=== PATIENT | male | born 1970 | race African-American/Black ===

== ENCOUNTER 2023-02-24 19:07 | Emergency (ER) | payer OTHER ==
[2023-02-24 19:30] LABS: Glucose,Whole Blood 91 mg/dL (70-110)
[2023-02-24] MEDS ORDERED: MAGNESIUM SULFATE-D5W PMX 1 GM in DEXTROSE/WATER 1 100ML.BAG IVPB ONE (19:30)
[2023-02-24] MEDS ORDERED: methylPREDNISolone SOD SUCCI 40 MG/ML 1 ML VIAL IV STA (19:30)
[2023-02-24] MEDS ORDERED: IPRATROPIUM-ALBUTEROL 3 ML NEB INHALATION STA ×2 (19:30→21:21)
[2023-02-24 19:44] VITALS: RESP 20
[2023-02-24 19:44] LABS: Basophils # (A) 0.1 k/uL (0-0.2); Basophils % (A) 1 %; Eosinophils # (A) 0.4 k/uL (0-0.7); Eosinophils % (A) 3 %; HCT 44.4 % (39.0-53.0); HGB 14.6 gm/dL (13.0-17.5); Lymphocytes # (A) 1.6 k/uL (1.0-4.8); Lymphocytes % (A) 13 %; MCHC 32.9 g/dL (31.0-37.0); MCV 90.9 fL (80.0-100.0); Mean Platelet Volume 8.2; Monocytes # (A) 0.4 k/uL (0-1.0); Monocytes % (A) 4 %; Neutrophils # (A) 9.7 k/uL (1.3-7.7); Neutrophils % (A) 78 %; Platelet Count 369 k/uL (150-450); RBC 4.89 m/uL (4.30-5.90); WBC 12.3 k/uL (3.8-10.6)
[2023-02-24 19:55] LABS: African American GFR (CKD) >90 (>60 ml/min/1.73 sqM); Anion Gap 9 mmol/L; Blood Urea Nitrogen 20 mg/dL (9-20); Calcium 9.5 mg/dL (8.4-10.2); Carbon Dioxide 30 mmol/L (22-30); Chloride 102 mmol/L (98-107); Non-African American GFR(CKD) >90 (>60 ml/min/1.73 sqM); Potassium 3.9 mmol/L (3.5-5.1); Sodium 141 mmol/L (137-145)
[2023-02-24 20:08] LABS: Glucose 45 mg/dL (74-99)
[2023-02-24 20:13] LABS: Glucose,Whole Blood 109 mg/dL (70-110)
[2023-02-24 21:02] LABS: Glucose,Whole Blood 144 mg/dL (70-110)
--- NOTE | 2023-02-24 21:24 | XR ---
EXAMINATION TYPE: XR chest 2V DATE OF EXAM: 02/24/2023 7:47 PM CLINICAL INDICATION:Male, 52 years old with history of cough; [facility] COMPARISON: None TECHNIQUE: XR chest 2V Frontal and lateral views of the chest. FINDINGS: Exam is limited by patient body habitus. Lines/Tubes: No indwelling lines are seen. Lungs/Pleura: There is no evidence of pleural effusion, focal consolidation, or pneumothorax. Pulmonary vascularity: Mild pulmonary vascular congestion. Heart/mediastinum: Cardiac silhouette is mildly to moderately enlarged suggesting cardiomegaly. Sligh tly prominent pericardial fat. Left chest single lead AICD/pacer with tip over the right ventricle. U nremarkable mediastinum. Musculoskeletal: No acute osseous pathology. Mild degenerative changes. Other findings: None IMPRESSION: Cardiomegaly with mild pulmonary vascular congestion. Correlate for mild CHF.
[2023-02-24 22:14] LABS: Glucose,Whole Blood 157 mg/dL (70-110)
[2023-02-24] MEDS ORDERED: AZITHROMYCIN 500 MG TAB PO STA (22:18)
--- NOTE | 2023-02-24 22:23 | ED ---
General Adult HPI - General Chief complaint: Recheck/Abnormal Lab/Rx Stated complaint: diabetic issues Time Seen by Provider: 02/24/23 19:11 Source: patient, EMS, RN notes reviewed, old records reviewed Mode of arrival: EMS Limitations: no limitations - History of Present Illness Initial comments: Patient is a 52-year-old male who presents emergency Department with primary complaint of COPD exacerbation, cough and concern for URI. Patient is a diabet ic and was also having issues with his blood sugars at his rehab facility. Sugars ranged from upper 60s to 90s. States he took his normal Lantus and ate small dinner. Has been on increased doses of Lantus for the last 2 weeks due to prior rehab facility placing him on 50 units twice a day rather than 45 units twice a day which is normal dose. States he ate a smaller dinner than normal which she attributes to his quasi low blood sugars. With EMS, blood sugars remained within acceptable limits over her 100. On arrival he was 91. We did provide him with food immediately upon arrival we'll continue to observe him for his blood sugars. He was in agreement this plan. In terms of his respiratory complaints he is complaining of 2 weeks of worsening somewhat productive cough and exacerbation of COPD. Denies any worsening lower extremity edema. Denies orthopnea. Denies PND. Does have a cardiac history with the ICD. Is compliant with all of her medications. Presents for further evaluation at this time. Denies chest pain or abdominal complaints at this time. States he last took his Lantus at approximately 5 PM. - Related Data Home Medications Medication Instructions Recorded Confirmed Aspirin EC [Ecotrin Low Dose] 81 mg PO DAILY 02/24/23 02/24/23 Cetirizine HCl 10 mg PO DAILY 02/24/23 02/24/23 DULoxetine HCL [Cymbalta] 60 mg PO DAILY 02/24/23 02/24/23 Ferrous Sulfate [Feosol] 325 mg PO MOWEFR 02/24/23 02/24/23 Fluticasone Nasal [place] [Flonase 1 spray EA NOSTRIL DAILY 02/24/23 02/24/23 Nasal [place]] Fluticasone Propion/Salmeterol 1 puff INHALATION RT-BID 02/24/23 02/24/23 [Advair 250-50 Diskus] Furosemide [Lasix] 80 mg PO DAILY 02/24/23 02/24/23 Ibuprofen [Motrin] 600 mg PO Q6H PRN 02/24/23 02/24/23 Insulin Glargine,Hum.rec.anlog 50 units SQ BID 02/24/23 02/24/23 [Lantus Solostar Pen] Insulin Lispro [Admelog Solostar] 20 units SQ TID 02/24/23 02/24/23 Nystatin [Nystatin Oral Susp] 4 - 6 ml PO QID 02/24/23 02/24/23 Omeprazole 20 mg PO DAILY 02/24/23 02/24/23 Polymyxin B-Trimeth Sulf Ophth 1 drop BOTH EYES DIRECTED 02/24/23 02/24/23 [Polytrim Opthalmic] Pregabalin [Lyrica] 100 mg PO BID 02/24/23 02/24/23 Simvastatin [Zocor] 20 mg PO HS 02/24/23 02/24/23 Sotalol [Betapace] 80 mg PO BID 02/24/23 02/24/23 allopurinoL [Zyloprim] 300 mg PO DAILY 02/24/23 02/24/23 amLODIPine [Norvasc] 5 mg PO DAILY 02/24/23 02/24/23 lisinopriL 40 mg PO DAILY 02/24/23 02/24/23 metFORMIN HCL 1,000 mg PO BID 02/24/23 02/24/23 traZODone HCL [Desyrel] 50 - 150 mg PO HS PRN 02/24/23 02/24/23 Previous Rx's Medication Instructions Recorded Albuterol Inhaler [Ventolin Hfa 1 puff INHALATION QID #8 gm 02/24/23 Inhaler] Albuterol Nebulized [Ventolin 2.5 mg INHALATION Q4H PRN 8 Days 02/24/23 Nebulized] #150 ml Azithromycin [Zithromax] 250 mg PO DAILY 4 Days #4 tab 02/24/23 predniSONE [Deltasone] 40 mg PO DAILY 5 Days #10 tab 02/24/23 Allergies Allergy/AdvReac Type Severity Reaction Status Date / Time No Known Allergies Allergy Verified 02/24/23 22:00 Review of Systems ROS Statement: Those systems with pertinent positive or pertinent negative responses have been documented in the HPI. Review of Systems: CONST: Denies fever EYES: Denies blurry vision ENT: Endorses nasal congestion C/V: Denies Chest pain RESP: Endorses cough GI: Denies abdominal pain : Denies dysuria SKIN: Denies rash. MSK: Denies joint pain. NEURO: Denies headache ROS Other: All systems not noted in ROS Statement are negative. Past Medical History Past Medical History: Asthma, Heart Failure, COPD, Diabetes Mellitus, Hypertension, Sleep Apnea/CPAP/BIPAP History of Any Multi-Drug Resistant Organisms: None Reported Past Surgical History: AICD, Appendectomy, Hernia Repair, Orthopedic Surgery Past Psychological History: Anxiety, Bipolar, Depression Smoking Status: Current every day smoker Past Alcohol Use History: Daily Past Drug Use History: Cocaine General Exam - General Exam Comments Initial Comments: General: Appears in no acute distress. HEAD: Normal with no signs of head trauma. EYES: PERRLA, EOMI, conjunctiva normal, no discharge. ENT: Hearing grossly intact, normal oropharynx. RESPIRATORY: Bilateral end x-ray wheezing. No hypoxia. No increased work of breathing. C/V: Regular rate and rhythm. S1 and S2 auscultated, no edema, peripheral pulses 2+ and intact throughout ABD: Abd is soft, nontender, nondistended EXT: Normal range of motion, no obvious deformity SKIN: No rashes or lesions observed on exposed skin. NEURO: Alert and oriented 4. Limitations: no limitations Course Vital Signs 02/24/23 02/24/23 02/24/23 19:18 20:10 20:24 Temperature 96.9 F L Pulse Rate 87 90 88 Respiratory 20 Rate Blood Pressure 134/62 O2 Sat by Pulse 95 Oximetry 02/24/23 02/24/23 02/24/23 21:28 21:41 22:37 Temperature 98.2 F Pulse Rate 82 81 91 Respiratory 20 Rate Blood Pressure 135/80 O2 Sat by Pulse 94 L Oximetry Medical Decision Making - Medical Decision Making Was pt. sent in by a medical professional or institution (, PA, SOCIAL SERVICES SPECIALIST, urgent c are, hospital, or long term...) When possible be specific @ -No Did you speak to anyone other than the patient for history (EMS, parent, family, police, friend...)? What history was obtained from this source @ -No Did you review nursing and triage notes (agree or disagree)? Why? @ -I reviewed and agree with nursing and triage notes Were old charts reviewed (outside hosp., previous admission, EMS record, old EKG, old radiological studies, urgent care reports/EKG's, long term records)? Report findings @ -Old charts reviewed Differential Diagnosis (chest pain, altered mental status, abdominal pain women, abdominal pain men, vaginal bleeding, weakness, fever, dyspnea, syncope, headache, dizziness, GI bleed, back pain, seizure, CVA, palpatations, mental health, musculoskeletal)? @ -Differential Dyspnea: Coronary syndrome, arrhythmia, tamponade, asthma, COPD, pulmonary embolism, pneumonia, pneumothorax, pulmonary effusion, anaphylaxis, diabetic ketoacidosis, flailed chest, pulmonary contusion, diaphragmatic rupture, anemia, neuromuscular, this is not meant to be an all-inclusive list. EKG interpreted by me (3pts min.). @ -As above X-rays interpreted by me (1pt min.). @ -Chest X Ray shows mild pulmonary vascular congestion but no evidence of acute infectious process. CT interpreted by me (1pt min.). @ -None done U/S interpreted by me (1pt. min.). @ -None done What testing was considered but not performed or refused? (CT, X-rays, U/S, labs)? Why? @ -None What meds were considered but not given or refused? Why? @ -None Did you discuss the management of the patient with other professionals (professionals i.e. , PA, SOCIAL SERVICES SPECIALIST, lab, RT, psych nurse, nursing home social worker, valuer, teacher, driver license reviewing officer, child welfare caseworker)? Give summary @ -No Was smoking cessation discussed for >3mins.? @ -No Was critical care preformed (if so, how long)? @ -No Were there social determinants of health that impacted care today? How? (Homelessness, low income, unemployed, alcoholism, drug addiction, transportation, low edu. Level, literacy, decrease access to med. care, correction, rehab)? @ -No Was there de-escalation of care discussed even if they declined (Discuss DNR or withdrawal of care, Hospice)? DNR status @ -No What co-morbidities impacted this encounter? (DM, HTN, Smoking, COPD, CAD, Cancer, CVA, ARF, Chemo, Hep., AIDS, mental health diagnosis, sleep apnea, morbid obesity)? @ -None Was patient admitted / discharged? Hospital course, mention meds given and route, prescriptions, significant lab abnormalities, going to OR and other pertinent info. @ -Based on patient's presentation and physical exam, presents with hypogl ycemia as well as what appears to be a COPD exacerbation and URI. Patient's blood sugars were adequate for EMS. Upon arrival, blood sugar was 91 here. He was given food and will continue to observe. He was in agreement with this plan. Accu-Chek was obtained at the same time as lab draws of glucose. Patient's glucose on labs is 45 however at the same time with the same blood Accu-Chek is 91. Repeat is 109. I do question the accuracy of the 45 value, as immediate Accu-Chek was 91 and patient never had any altered mental status or signs of hypoglycemia otherwise. Discussed this with the patient and he was in agreement. We'll continue to monitor for multiple hours. Patient was in agre ement this plan. We'll obtain basic labs, chest x-ray, viral swabs. He'll be symptomatically treated with IV magnesium, IV steroids, breathing treatments. Vital signs remain within except for limits. Patient's labs are relatively unremarkable. Repeat Accu-Cheks hourly remain elevated and are not decreasing. Patient's chest x-ray shows no obvious acute cardiopulmonary process. EKG unremarkable. On reevaluation, patient is feeling improved. We'll go home. I believe this is reasonable as we have observed him here in the department for 3-1/2 hours. Patient's blood sugars have remained elevated and it has not dropped. Discussed that he should go back to taking is normal twice a day Lantus 45 units rather than the 50 units he has been on. I will write his instructions and his discha rge paperwork for the rehab facility. Patient also be given prescriptions for prednisone, albuterol, azithromycin and he will be given a Z-Cesar here. He was in agreement this plan. Strict return precautions discussed. I will provide the patient with a prescription for albuterol, prednisone, azithromycin. I instructed the patient to follow up with their PCP in the next 1-3 days. I explained that the patient should return to the emergency department if they experience any worsening symptoms. Strict return precautions were discussed with the patient. The patient expressed understanding of these instructions. I answered all questions that the patient had. The patient was discharged home in good condition with their prescriptions and follow up information. Undiagnosed new problem with uncertain prognosis? @ -No Drug Therapy requiring intensive monitoring for toxicity (Heparin, Nitro, Insulin, Cardizem)? @ -No Were any procedures done? @ -No Diagnosis/symptom? @ -Resolved Hypoglycemia in the setting of insulin-dependent diabetes Acute, or Chronic, or Acute on Chronic? @ -Acute Uncomplicated (without systemic symptoms) or Complicated (systemic symptoms)? @ -Uncomplicated Side effects of treatment? @ -No Exacerbation, Progression, or Severe Exacerbation? @ -No Poses a threat to life or bodily function? How? (Chest pain, [place], [place], pneumonia, PE, COPD, DKA, ARF, appy, cholecystitis, CVA, Diverticulitis, Homicidal, Suicidal, threat to staff... and all critical care pts) @ -Possibly, yes if not controlled Diagnosis/symptom? @ -COPD, tracheo bronchitis Acute, or Chronic, or Acute on Chronic? @ -Acute Uncomplicated (without systemic symptoms) or Complicated (systemic symptoms)? @ -Complicated Side effects of treatment? @ -none Exacerbation, Progression, or Severe Exacerbation] @ -Exacerbation Poses a threat to life or bodily function? @ - unlikely - Lab Data Result diagrams: 02/24/23 19:34 02/24/23 19:34 Lab Results 02/24/23 02/24/23 02/24/23 Range/Units 19:20 19:34 19:34 WBC 12.3 H (3.8-10.6) k/uL RBC 4.89 (4.30-5.90) m/uL Hgb 14.6 (13.0-17.5) gm/dL Hct 44.4 (39.0-53.0) % MCV 90.9 (80.0-100.0) fL MCH 30.0 (25.0-35.0) pg MCHC 32.9 (31.0-37.0) g/dL RDW 14.0 (11.5-15.5) % Plt Count 369 (150-450) k/uL MPV 8.2 Neutrophils % 78 % Lymphocytes % 13 % Monocytes % 4 % Eosinophils % 3 % Basophils % 1 % Neutrophils # 9.7 H (1.3-7.7) k/uL Lymphocytes # 1.6 (1.0-4.8) k/uL Monocytes # 0.4 (0-1.0) k/uL Eosinophils # 0.4 (0-0.7) k/uL Basophils # 0.1 (0-0.2) k/uL Sodium 141 (137-145) mmol/L Potassium 3.9 (3.5-5.1) mmol/L Chloride 102 (98-107) mmol/L Carbon Dioxide 30 (22-30) mmol/L Anion Gap 9 mmol/L BUN 20 (9-20) mg/dL Creatinine 0.79 (0.66-1.25) mg/dL Est GFR (CKD-EPI)AfAm >90 (>60 ml/min/1.73 sqM) Est GFR (CKD-EPI)NonAf >90 (>60 ml/min/1.73 sqM) Glucose 45 L* (74-99) mg/dL POC Glucose (mg/dL) 91 (70-110) mg/dL POC Glu Emergency Department Physician ID Shelly Santillan Calcium 9.5 (8.4-10.2) mg/dL Influenza Type A (PCR) (Not Detectd) Influenza Type B (PCR) (Not Detectd) RSV (PCR) (Not Detectd) SARS-CoV-2 (PCR) (Not Detectd) 02/24/23 02/24/23 02/24/23 Range/Units 19:34 20:11 21:00 WBC (3.8-10.6) k/uL RBC (4.30-5.90) m/uL Hgb (13.0-17.5) gm/dL Hct (39.0-53.0) % MCV (80.0-100.0) fL MCH (25.0-35.0) pg MCHC (31.0-37.0) g/dL RDW (11.5-15.5) % Plt Count (150-450) k/uL MPV Neutrophils % % Lymphocytes % % Monocytes % % Eosinophils % % Basophils % % Neutrophils # (1.3-7.7) k/uL Lymphocytes # (1.0-4.8) k/uL Monocytes # (0-1.0) k/uL Eosinophils # (0-0.7) k/uL Basophils # (0-0.2) k/uL Sodium (137-145) mmol/L Potassium (3.5-5.1) mmol/L Chloride (98-107) mmol/L Carbon Dioxide (22-30) mmol/L Anion Gap mmol/L BUN (9-20) mg/dL Creatinine (0.66-1.25) mg/dL Est GFR (CKD-EPI)AfAm (>60 ml/min/1.73 sqM) Est GFR (CKD-EPI)NonAf (>60 ml/min/1.73 sqM) Glucose (74-99) mg/dL POC Glucose (mg/dL) 109 144 H (70-110) mg/dL POC Glu Emergency Department Physician Shelly Degroot Taylor Calcium (8.4-10.2) mg/dL Influenza Type A (PCR) Not Detected (Not Detectd) Influenza Type B (PCR) Not Detected (Not Detectd) RSV (PCR) Not Detected (Not Detectd) SARS-CoV-2 (PCR) Not Detected (Not Detectd) 02/24/23 Range/Units 22:07 WBC (3.8-10.6) k/uL RBC (4.30-5.90) m/uL Hgb (13.0-17.5) gm/dL Hct (39.0-53.0) % MCV (80.0-100.0) fL MCH (25.0-35.0) pg MCHC (31.0-37.0) g/dL RDW (11.5-15.5) % Plt Count (150-450) k/uL MPV Neutrophils % % Lymphocytes % % Monocytes % % Eosinophils % % Basophils % % Neutrophils # (1.3-7.7) k/uL Lymphocytes # (1.0-4.8) k/uL Monocytes # (0-1.0) k/uL Eosinophils # (0-0.7) k/uL Basophils # (0-0.2) k/uL Sodium (137-145) mmol/L Potassium (3.5-5.1) mmol/L Chloride (98-107) mmol/L Carbon Dioxide (22-30) mmol/L Anion Gap mmol/L BUN (9-20) mg/dL Creatinine (0.66-1.25) mg/dL Est GFR (CKD-EPI)AfAm (>60 ml/min/1.73 sqM) Est GFR (CKD-EPI)NonAf (>60 ml/min/1.73 sqM) Glucose (74-99) mg/dL POC Glucose (mg/dL) 157 H (70-110) mg/dL POC Glu Emergency Department Physician ID Eliu Miranda Calcium (8.4-10.2) mg/dL Influenza Type A (PCR) (Not Detectd) Influenza Type B (PCR) (Not Detectd) RSV (PCR) (Not Detectd) SARS-CoV-2 (PCR) (Not Detectd) - EKG Data -: EKG Interpreted by Me EKG Comments: 12-lead Electrocardiogram Interpretation Note EKG was reviewed and interpreted by myself. 12-lead ECG performed at 2000 is interpreted by me as revealing normal sinus rhythm at a rate of 86 beats per minute. [place] is normal. [place] intervals 159 ms. QRS durations 101 ms. QTC is 433 ms.. There were no ST or T wave abnormalities to suggest myocardial ischemia or injury. R wave progression across the precordium was satisfactory. By my interpretation this EKG is non-diagnostic for acute ischemia. Disposition Clinical Impression: Hypoglycemia, Tracheobronchitis, COPD (chronic obstructive pulmonary disease) Disposition: HOME SELF-CARE Condition: Good Additional Instructions: Begin taking 45 units of lantus BID, which is the original prescription. Prescriptions: predniSONE [Deltasone] 40 mg PO DAILY 5 Days #10 tab Albuterol Inhaler [Ventolin Hfa Inhaler] 1 puff INHALATION QID #8 gm Albuterol Nebulized [Ventolin Nebulized] 2.5 mg INHALATION Q4H PRN 8 Days #150 ml PRN Reason: Wheezing Azithromycin [Zithromax] 250 mg PO DAILY 4 Days #4 tab Is patient prescribed a controlled substance at d/c from ED?: No Referrals: Sushma Clark MD [Primary Care Provider] - 1-2 days Time of Disposition: 22:15
[2023-02-24 22:46] VITALS: BP 135/80; PULSE 91; TEMP 98.2
== END 2023-02-24 22:51 | disposition home or self-care (01) ==
LOC: EC 19:07
DX: E11.649 Type 2 diabetes mellitus with hypoglycemia without coma (principal); J44.89 Other specified chronic obstructive pulmonary disease; I11.0 Hypertensive heart disease with heart failure; I50.9 Heart failure, unspecified; G47.30 Sleep apnea, unspecified; F41.9 Anxiety disorder, unspecified; F31.9 Bipolar disorder, unspecified; F17.200 Nicotine dependence, unspecified, uncomplicated; F14.90 Cocaine use, unspecified, uncomplicated; Z79.899 Other long term (current) drug therapy; Z79.51 Long term (current) use of inhaled steroids; Z79.4 Long term (current) use of insulin; Z79.84 Long term (current) use of oral hypoglycemic drugs; Z79.82 Long term (current) use of aspirin; Z20.822 Contact with and (suspected) exposure to COVID-19
CPT/HCPCS: 99284; 96365; 96375; 36415; 94640 ×2; 93005; 80048; 85025; 87636; 71046; J2920; J3475

== ENCOUNTER 2023-03-09 05:50 | Emergency (ER) | payer OTHER ==
[2023-03-09 06:15] VITALS: BP 137/92; RESP 18; TEMP 98
[2023-03-09] MEDS ORDERED: IPRATROPIUM-ALBUTEROL 3 ML NEB INHALATION STA (06:38)
--- NOTE | 2023-03-09 06:41 | ED ---
General Adult HPI - General Chief complaint: Shortness of Breath Stated complaint: COPD Time Seen by Provider: 03/09/23 06:20 Source: patient, RN notes reviewed Mode of arrival: EMS Limitations: no limitations - History of Present Illness Initial comments: Patient is a 52-year-old male presented to the emergency room today with chief complaint of cough, congestion 1 month. Patient does admit that rhythm with a follow-up with an urgent care was prescribed Z-Cesar. He states that he was on steroids at the time but is unsure. He states that some the symptoms improved but he still been having congestion. He feels it more on his sinuses. He states had increased pressure, discomfort. States that he does do breathing treatments for COPD. He woke up this morning early around 1 AM which is normal for him to do a breathing treatment. He states he had some improvement of the symptoms. He states waking up again around 3:30 was still feeling somewhat congested today with a breathing treatment. He states given having some relief but still feeling congested. Currently staying at [facility]. Was evaluated and decided to be brought to the emergency room for evaluation. Patient states currently comfortable at this time. States does feel some pressure behind his sinuses. Has had drinks been yellow, green in color. Patient denies any other complaints or symptoms at this time. Patient denies any recent fever, chills, chest pain, back pain, abdominal pain, nausea or vomiting, headaches or visual changes, or any other complaints. - Related Data Home Medications Medication Instructions Recorded Confirmed Aspirin EC [Ecotrin Low Dose] 81 mg PO DAILY 02/24/23 02/24/23 Cetirizine HCl 10 mg PO DAILY 02/24/23 02/24/23 DULoxetine HCL [Cymbalta] 60 mg PO DAILY 02/24/23 02/24/23 Ferrous Sulfate [Feosol] 325 mg PO MOWEFR 02/24/23 02/24/23 Fluticasone Nasal [place] [Flonase 1 spray EA NOSTRIL DAILY 02/24/23 02/24/23 Nasal [place]] Fluticasone Propion/Salmeterol 1 puff INHALATION RT-BID 02/24/23 02/24/23 [Advair 250-50 Diskus] Furosemide [Lasix] 80 mg PO DAILY 02/24/23 02/24/23 Ibuprofen [Motrin] 600 mg PO Q6H PRN 02/24/23 02/24/23 Insulin Glargine,Hum.rec.anlog 50 units SQ BID 02/24/23 02/24/23 [Lantus Solostar Pen] Insulin Lispro [Admelog Solostar] 20 units SQ TID 02/24/23 02/24/23 Nystatin [Nystatin Oral Susp] 4 - 6 ml PO QID 02/24/23 02/24/23 Omeprazole 20 mg PO DAILY 02/24/23 02/24/23 Polymyxin B-Trimeth Sulf Ophth 1 drop BOTH EYES DIRECTED 02/24/23 02/24/23 [Polytrim Opthalmic] Pregabalin [Lyrica] 100 mg PO BID 02/24/23 02/24/23 Simvastatin [Zocor] 20 mg PO HS 02/24/23 02/24/23 Sotalol [Betapace] 80 mg PO BID 02/24/23 02/24/23 allopurinoL [Zyloprim] 300 mg PO DAILY 02/24/23 02/24/23 amLODIPine [Norvasc] 5 mg PO DAILY 02/24/23 02/24/23 lisinopriL 40 mg PO DAILY 02/24/23 02/24/23 metFORMIN HCL 1,000 mg PO BID 02/24/23 02/24/23 traZODone HCL [Desyrel] 50 - 150 mg PO HS PRN 02/24/23 02/24/23 Previous Rx's Medication Instructions Recorded Albuterol Inhaler [Ventolin Hfa 1 puff INHALATION QID #8 gm 02/24/23 Inhaler] Albuterol Nebulized [Ventolin 2.5 mg INHALATION Q4H PRN 8 Days 02/24/23 Nebulized] #150 ml Azithromycin [Zithromax] 250 mg PO DAILY 4 Days #4 tab 02/24/23 predniSONE [Deltasone] 40 mg PO DAILY 5 Days #10 tab 02/24/23 predniSONE [Deltasone] 20 mg PO BID 5 Days tab 03/09/23 Allergies Allergy/AdvReac Type Severity Reaction Status Date / Time No Known Allergies Allergy Verified 03/09/23 06:09 Review of Systems ROS Statement: Those systems with pertinent positive or pertinent negative responses have been documented in the HPI. ROS Other: All systems not noted in ROS Statement are negative. Past Medical History Past Medical History: Asthma, Heart Failure, COPD, Diabetes Mellitus, Hypertension, Sleep Apnea/CPAP/BIPAP History of Any Multi-Drug Resistant Organisms: None Reported Past Surgical History: AICD, Appendectomy, Hernia Repair, Orthopedic Surgery Past Psychological History: Anxiety, Bipolar, Depression Smoking Status: Current every day smoker Past Alcohol Use History: Daily Past Drug Use History: Cocaine General Exam - General Exam Comments Initial Comments: General: The patient is awake and alert, in no distress, and does not appear acutely ill. Eye: Pupils are equal, round and reactive to light, extra-ocular movements are intact. No nystagmus. There is normal conjunctiva bilaterally. No signs of icterus. Ears, nose, mouth and throat: There are moist mucous membranes and no oral lesions. Neck: The neck is supple, there is no tenderness or JVD. Cardiovascular: There is a regular rate and rhythm. No murmur, rub or gallop is appreciated. No leg edema Respiratory: Lungs are clear to auscultation. Decreased lung sounds bilaterally. No wheezes, stridor, rales, or rhonchi. Musculoskeletal: Normal ROM, no tenderness. Neurological: A&O x 3. CN II-XII intact, There are no obvious motor or sensory deficits. Coordination appears grossly intact. Speech is normal. Skin: Skin is warm and dry and no rashes or lesions are noted. Psychiatric: Cooperative, appropriate mood & affect, normal judgment. Limitations: no limitations Course Vital Signs 03/09/23 03/09/23 03/09/23 06:05 06:49 07:01 Temperature 98 F Pulse Rate 85 84 84 Respiratory 18 Rate Blood Pressure 137/92 O2 Sat by Pulse 94 L Oximetry Medical Decision Making - Medical Decision Making MDM History was obtained from patient/Nurse/ Initial assessment and chief complaint: Cough, congestion Chronic conditions affecting care: COPD, CAD, diabetes Social determinants affecting care: none Differential diagnosis included, but not limited to: Influenza, RSV, pneumonia, covid Any labs that may have been performed during the patients stay were interpreted by me. Pertinent abnormal labs include Covid positive Any imaging that may have been performed was also reviewed. I did an independent interpretation of the patient's imaging. My interpretation is chest x-ray was unremarkable for any sign of pneumonia. During the patients stay they were provided with the following medications breathing treatment On my re-evaluation, escalation to admission/observation was considered and the decision was made to (disposition) discharge Patient 52-year-old male significant past medical history for COPD presented to the emergency room today with chief complaint of cough congestion. Does admit that symptoms started approximately a month ago. Was treated with azithromycin at that time. States did have some improvement but noticed that he still having a lot of sinus pressure and congestion. The patient does admit that the symptoms have changed recently over the last few days increasing. Patient states he did have a negative Covid test earlier in the month. His Covid swab was positive. The emergency room. Chest x-ray was negative for any sign of pneumonia. Patient's pulse ox remained stable 94% was given breathing treatment. Lung sounds are clear. Patient resting comfortably nontoxic is speaking in full sentences. The patient will be discharged home given up her prescription for steroid. His advised following with family physician return here to emergency room for any symptoms increase worsen appropriate concerns. He states understanding and is agreement with the plan.. - Lab Data Lab Results 03/09/23 Range/Units 06:11 Influenza Type A (PCR) Not Detected (Not Detectd) Influenza Type B (PCR) Not Detected (Not Detectd) RSV (PCR) Not Detected (Not Detectd) SARS-CoV-2 (PCR) Detected A (Not Detectd) Disposition Clinical Impression: COVID-19, Congestive heart failure Disposition: HOME SELF-CARE Condition: Good Instructions (If sedation given, give patient instructions): COVID-19 (Coronavirus Disease 2019) (ED) Prescriptions: predniSONE [Deltasone] 20 mg PO BID 5 Days tab Is patient prescribed a controlled substance at d/c from ED?: No Referrals: Sushma Clark MD [Primary Care Provider] - 1-2 days Time of Disposition: 07:59
[2023-03-09 07:09] VITALS: PULSE 84
--- NOTE | 2023-03-09 07:19 | XR ---
EXAMINATION TYPE: XR chest 2V DATE OF EXAM: 03/09/2023 6:21 AM CLINICAL INDICATION:Male, 52 years old with history of cough; [facility] COMPARISON: Chest radiographs from 02/24/2022 TECHNIQUE: XR chest 2V Frontal and lateral views of the chest. FINDINGS: Lungs/Pleura: There is no evidence of pleural effusion, focal consolidation, or pneumothorax. Pulmonary vascularity: Unremarkable. Heart/mediastinum: Cardiomediastinal silhouette is unremarkable. Single-lead cardiac conduction devic e overlying the left hemithorax with lead projecting over the right ventricle. Musculoskeletal: No acute osseous pathology. Other findings: None IMPRESSION: No acute cardiopulmonary disease/process.
== END 2023-03-09 08:21 | disposition home or self-care (01) ==
LOC: EC 05:50
DX: U07.1 COVID-19 (principal); I11.0 Hypertensive heart disease with heart failure; I50.9 Heart failure, unspecified; J44.89 Other specified chronic obstructive pulmonary disease; E11.9 Type 2 diabetes mellitus without complications; G47.30 Sleep apnea, unspecified; F17.200 Nicotine dependence, unspecified, uncomplicated; F14.90 Cocaine use, unspecified, uncomplicated; Z86.59 Personal history of other mental and behavioral disorders; Z79.4 Long term (current) use of insulin; Z79.84 Long term (current) use of oral hypoglycemic drugs; Z79.51 Long term (current) use of inhaled steroids; Z79.899 Other long term (current) drug therapy; Z79.82 Long term (current) use of aspirin
CPT/HCPCS: 71046; 87636; 94640; 99285